=== PATIENT | male | born 1985 | race Caucasian/White ===

== ENCOUNTER 2023-06-11 17:27 | Emergency (ER) | payer BC ==
[2023-06-11 17:47] VITALS: RESP 24; TEMP 98.2
[2023-06-11] MEDS ORDERED: TORAdol 30 mg Injection ONE (18:06)
[2023-06-11] MEDS ORDERED: Norflex 60 MG/2 ML ONE (18:06)
[2023-06-11] MEDS: Norflex 60 MG/2 ML IM ONE (18:12)
[2023-06-11] MEDS: TORAdol 30 mg Injection IM ONE (18:13)
--- NOTE | 2023-06-11 18:13 | ERPHSYRPT ---
- History of Present Illness Time Seen by Provider: 06/11/23 17:42 Source: patient Exam Limitations: no limitations Patient Subjective Stated Complaint: pt states that he bent down at work and hurt his back Triage Nursing Assessment: pt came into the er via wheelchair; pt transfer to cot per self; c/o back pain; pt states 7/10 to lower back; no deformity present to back; no bruising present; pt denies fall or injury; no respiratory distress present; skin PDW; hypertensive; tachycardic Physician History: 37-year-old with history of back pain presented in the ER with sudden worsening today after 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 Patient reports moderate to severe sharp shooting pain nonradiating, lower back, aggravated with activity and is unable to find a comfortable spot. No perineal numbness/saddle anesthesia, numbness tingling weakness of lower extremities. Denies any loss of bowel or bladder control. Allergies/Adverse Reactions: banana Allergy (Verified 06/11/23 17:35) Home Medications: Methylprednisolone Packet [Medrol Dosepack] 4 mg PO UD 06/11/23 [History] Hx Tetanus, Diphtheria Vaccination/Date Given: No Hx Influenza Vaccination/Date Given: No Hx Pneumococcal Vaccination/Date Given: No Travel Risk - International Travel Have you traveled outside of the country in past 3 weeks: No - Emerging Infectious Disease Are you exhibiting symptoms associated with any current EIDs: No - Review of Systems Constitutional: No Symptoms Ears, Nose, & Throat: No Symptoms Respiratory: No Symptoms Cardiac: No Symptoms Abdominal/Gastrointestinal: No Symptoms Genitourinary Symptoms: No Symptoms Musculoskeletal: Back Pain Skin: No Symptoms Neurological: No Symptoms Endocrine: No Symptoms Hematologic/Lymphatic: No Symptoms - Past Medical History Pertinent Past Medical History: No - Past Surgical History Past Surgical History: No - Social History Smoking Status: Current every day smoker How long have you smoked: 18 Exposure to second hand smoke: Yes Drug Use: marijuana - Nursing Vital Signs Nursing Vital Signs: Initial Vital Signs Temperature 98.2 F 06/11/23 17:36 Pulse Rate 105 H 06/11/23 17:36 Respiratory Rate 24 06/11/23 17:36 Blood Pressure 157/89 06/11/23 17:36 O2 Sat by Pulse Oximetry 98 06/11/23 17:36 Pain Scale Pain Intensity [Lower Back] 7 Pain Intensity 7 - Physical Exam General Appearance: no apparent distress, alert Eye Exam: PERRL/EOMI Neck Exam: normal inspection, full range of motion Respiratory Exam: normal breath sounds, lungs clear Cardiovascular Exam: regular rate/rhythm, normal heart sounds Gastrointestinal Exam: soft, normal bowel sounds, No tenderness Back Exam: normal inspection, decreased range of motion, muscle spasm, point tenderness (Lumbar/sacroiliac area), other (Right leg raising test positive at 60 degree in both. Bilateral 5/5 power with 2+ symmetric reflexes in the Achilles and patellar. Plantars downgoing.) Extremity Exam: normal inspection, normal range of motion Neurologic Exam: alert, oriented x 3, cooperative, sensation nml, No motor deficits Skin Exam: normal color SpO2 Interpretation: normal SpO2: 98 O2 Delivery: Room Air Ordered Tests: Active Orders 24 hr Category Date Time Status LUMBAR SPINE W/O [CT] Stat Exams 06/11/23 17:57 Taken Medication Summary Discontinued Medications Generic Name Dose Route Start Last Admin Trade Name Cait PRN Reason Stop Dose Admin Ketorolac Tromethamine 30 mg 06/11/23 17:56 06/11/23 18:13 Ketorolac Tromethamine 30 Mg/Ml Inj IM 06/11/23 17:57 30 mg STAT ONE Administration Ketorolac Tromethamine Confirm 06/11/23 18:06 Ketorolac Tromethamine 30 Mg/Ml Inj Administered 06/11/23 18:07 Dose 30 mg .ROUTE .STK-MED ONE Orphenadrine Citrate 60 mg 06/11/23 17:57 06/11/23 18:12 Orphenadrine Citrate 60 Mg/2 Ml Vial IM 06/11/23 17:58 60 mg STAT ONE Administration Orphenadrine Citrate Confirm 06/11/23 18:06 Orphenadrine Citrate 60 Mg/2 Ml Vial Administered 06/11/23 18:07 Dose 60 mg .ROUTE .STK-MED ONE - Progress Progress: pain not gone completely Progress Note: 06/11/23 20:20 37-year-old is evaluated for low back pain. Patient has history of back pain, bent over and got worse earlier. Patient has negative neuro exam in lower extremities. No cauda equina symptoms. Is given Toradol and Norflex as patient does not want any narcotics. On reevaluation pain is minimally improved and still have significant pain. CT lumbar spine is negative for any acute fracture or subluxation on a preliminary report, official report is pending. I have discussed the results of CT with the patient and patient started cursing and demanding to have MRI done. Patient is told that MRI cannot be obtained from ER unless patient has findings suggestive of cauda equina and has to follow-up outpatient to schedule it. 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 It was a difficult encounter. He is advised to follow-up with his primary care for reevaluation. Discussed signs symptoms of worsening/cauda equina needing return to ER which patient agrees. He got very aggressive and started ripping off his gown. He is again offered that he can have pain medication if he has someone to drive him back home where he does not want to listen. 06/11/23 20:23 Patient walked out of the ER without any assistance. Counseled pt/family regarding: diagnosis, need for follow-up, rad results Medical Desision Making - Diagnostic Testing Diagnostic test were ordered, analyzed, and reviewed by me: Yes Radiological Interpretation: Reviewed by me - Departure Departure Disposition: Home Clinical Impression: Low back pain Qualifiers: Chronicity: acute Sciatica presence: without sciatica Condition: Stable Critical Care Time: No Referrals: DOCTOR,NO FAMILY [Primary Care Provider] - Follow up/PCP as directed Instructions: Low Back Pain (DC) Additional Instructions: Take Tylenol/ibuprofen as needed. Follow-up with your primary care for reevaluation. Return to ER for intractable low back pain, numbness tingling weakness of lower extremities/saddle anesthesia/perineal numbness etc. Prescriptions: Ibuprofen 600 mg PO Q6HPRN PRN 10 Days #20 tablet PRN Reason: Pain Cyclobenzaprine HCl 10 mg [Flexeril 10 MG] 10 mg PO TID #12 tablet
[2023-06-11 20:02] VITALS: BP 129/79; PULSE 84
[2023-06-11 20:25] VITALS: O2SAT 98
--- NOTE | 2023-06-12 09:13 | XRAY ---
Indication: Low back pain. Multiple contiguous images obtained through the lumbar spine appears sagittal and coronal reformatted images obtained. Comparison: None Axial images negative for acute fracture, suspicious bony lesions, or spinal canal stenosis. Facets and visualized SI joints are symmetric. Sagittal and coronal reformatted images demonstrates normal lumbar alignment with vertebral body heights/disc spaces maintained. No acute compression fracture or subluxation. Visualized noncontrasted soft tissues demonstrates minimal aortoiliac calcifications. Impression: Minimal arteriosclerotic disease. Remaining CT lumbar spine is normal.
== END 2023-06-11 20:40 | disposition home or self-care (01) ==
LOC: ED 17:27
DX: M54.50 Low back pain, unspecified (principal); Z79.52 Long term (current) use of systemic steroids; Z72.0 Tobacco use
CPT/HCPCS: 72131; 96372; 99283; J1885; J2360